=== PATIENT | female | born 1980 | race African-American/Black ===

== ENCOUNTER 2016-10-07 09:33 | Emergency (ER) | payer OTHER ==
[2016-10-07 09:44] VITALS: RESP 18
[2016-10-07] MEDS ORDERED: AZITHROMYCIN 500 MG TAB PO STA (09:54)
[2016-10-07] MEDS ORDERED: cefTRIAXone 250 MG VIAL IM STA (09:54)
[2016-10-07] MEDS ORDERED: metroNIDAZOLE 500 MG TAB PO STA (09:54)
--- NOTE | 2016-10-07 09:58 | ED ---
General Adult HPI - General Chief complaint: Recheck/Abnormal Lab/Rx Stated complaint: POSS STD Time Seen by Provider: 10/07/16 09:48 Source: patient, RN notes reviewed Mode of arrival: ambulatory Limitations: no limitations - History of Present Illness Initial comments: 36-year-old female presents to the emergency department with a chief complaint of concern for STD. Patient states that her sexual partner is having drainage and discharge and dysuria and so she is concerned. Patient states she has not had any symptoms. Patient's any abdominal pain. Patient states she was just like treatment for possible STDs and to be tested. Patient states year ago she was tested and everything was negative.Patient denies any recent fever, chills, shortness of breath, chest pain, back pain, abdominal pain, nausea vomiting, numbness or tingling, dysuria or hematuria, constipation or diarrhea, headaches or visual changes, or any other current symptoms. - Related Data Previous Rx's Medication Instructions Recorded Doxycycline [Vibramycin] 100 mg PO Q12HR #56 capsule 10/07/16 Allergies Allergy/AdvReac Type Severity Reaction Status Date / Time No Known Allergies Allergy Verified 10/07/16 09:55 Review of Systems ROS Statement: Those systems with pertinent positive or pertinent negative responses have been documented in the HPI. ROS Other: All systems not noted in ROS Statement are negative. Past Medical History Past Medical History: Asthma, Seizure Disorder Additional Past Medical History / Comment(s): Tubal , seizure in 2006, vomiting and abd. pain. History of Any Multi-Drug Resistant Organisms: None Reported Past Surgical History: Appendectomy, Section Additional Past Surgical History / Comment(s): Novasure procedure 4 yrs. ago. Past Anesthesia/Blood Transfusion Reactions: No Reported Reaction Past Psychological History: Bipolar, Depression, PTSD Smoking Status: Current every day smoker Past Alcohol Use History: Rare Additional Past Alcohol Use History / Comment(s): Smokes 1/2 PPD since age 17. Past Drug Use History: Marijuana Additional Drug Use History / Comment(s): Medical Marijuana weekly. - Past Family History Mother Family Medical History: No Reported History General Exam Limitations: no limitations General appearance: alert, in no apparent distress Eye exam: Present: normal appearance, PERRL, EOMI. Absent: scleral icterus, conjunctival injection, periorbital swelling Neck exam: Present: normal inspection. Absent: tenderness, meningismus, lymphadenopathy Respiratory exam: Present: normal lung sounds bilaterally. Absent: respiratory distress, wheezes, rales, rhonchi, stridor Cardiovascular Exam: Present: regular rate, normal rhythm, normal heart sounds. Absent: systolic murmur, diastolic murmur, rubs, gallop, clicks GI/Abdominal exam: Present: soft, normal bowel sounds. Absent: distended, tenderness, guarding, rebound, rigid Neurological exam: Present: alert, oriented X3 Psychiatric exam: Present: normal affect Skin exam: Present: warm, dry, intact, normal color. Absent: rash Course Vital Signs 10/07/16 09:40 Temperature 99.0 F Pulse Rate 85 Respiratory 18 Rate Blood Pressure 142/65 O2 Sat by Pulse 100 Oximetry Medical Decision Making - Medical Decision Making 36-year-old male presents for concern about STD. This time we did offer the patient pelvic exam to further evaluate for STDs she states she's not had any drainage or discharge. She states that she will see her own doctor for pelvic exam and she started if we can just test on the urine. This time we will respect the patient's wishes. We discussed close follow up with her doctor for additional visualization to look for possible STDs. We will test the patient's urine for STDs. We did discuss follow-up and return parameters. Patient stated that she understood she is negative plan. She will be discharged home. We discussed appropriate sexual relations at this time. - Lab Data Lab Results 10/07/16 10/07/16 Range/Units 10:12 10:12 Urine Color Yellow Urine Appearance Clear (Clear) Urine pH 7.5 (5.0-8.0) Ur Specific [place] 1.011 (1.001-1.035) Urine Protein 1+ H (Negative) Urine Glucose (UA) Negative (Negative) Urine Ketones Negative (Negative) Urine Blood Small H (Negative) Urine Nitrite Negative (Negative) Urine Bilirubin Negative (Negative) Urine Urobilinogen 2.0 (<2.0) mg/dL Ur Leukocyte Esterase Trace H (Negative) Urine RBC 8 H (0-5) /hpf Urine WBC 1 (0-5) /hpf Ur Squamous Epith Cells 1 (0-4) /hpf Urine HCG, Qual Not Detected (Not Detectd) Disposition Clinical Impression: Concern about STD in female without diagnosis Disposition: HOME SELF-CARE Condition: Stable Instructions: Sexually Transmitted Diseases (ED) Additional Instructions: Please use medication as discussed. Please follow up with family doctor if symptoms have not improved over the next two days. Please return to the emergency room if your symptoms increase or worsen or for any other concerns. Prescriptions: Doxycycline [Vibramycin] 100 mg PO Q12HR #56 capsule Referrals: Dejuan Calvo DO [STAFF PHYSICIAN] - 1-2 days Time of Disposition: 11:05
[2016-10-07 11:01] LABS: Appearance,Urine Clear (Clear); Bilirubin,Urine Negative (Negative); Glucose,Urine (UA) Negative (Negative); Ketones,Urine Negative (Negative); Leukocyte Esterase,Urine Trace (Negative); Nitrite,Urine Negative (Negative); PH, Urine 7.5 (5.0-8.0); Particle Count 787; Protein,Urine 1+ (Negative); RBC,Urine 8 /hpf (0-5); Specific Gravity,Urine 1.011 (1.001-1.035); Squamous Epithelial Cell,Urine 1 /hpf (0-4); UA Billing (MACRO vs. MICRO) MICRO; WBC,Urine 1 /hpf (0-5)
[2016-10-07 11:19] VITALS: BP 129/79; PULSE 70; TEMP 97.3
== END 2016-10-07 11:19 | disposition home or self-care (01) ==
LOC: EC 09:33
DX: Z11.3 Encounter for screening for infections with a predominantly sexual mode of transmission (principal); F17.200 Nicotine dependence, unspecified, uncomplicated
CPT/HCPCS: 99283; 96372; 81001; 81025; 87491; 87591; 87086; J0696

== ENCOUNTER 2016-10-21 05:48 | Emergency (ER) | payer OTHER ==
[2016-10-21] MEDS ORDERED: SODIUM CHLORIDE 0.9% 1,000 ML IV STA (06:20)
[2016-10-21] MEDS ORDERED: FAMOTIDINE 20 MG/2 ML VIAL IV STA (06:20)
[2016-10-21] MEDS ORDERED: ONDANSETRON 4 MG/2 ML VIAL IVP STA (06:20)
[2016-10-21] MEDS ORDERED: RX INFO: IV CONTRAST WAS GIVEN 1 EACH MISC MISCELLANE PRN (06:20)
[2016-10-21] MEDS ORDERED: HYDROmorphone 1 MG/ML 1 ML SYRINGE IVP STA (06:20)
--- NOTE | 2016-10-21 06:23 | ED ---
General Adult HPI - General Chief complaint: Abdominal Pain Stated complaint: Abd pain Time Seen by Provider: 10/21/16 06:17 Source: patient, RN notes reviewed Mode of arrival: ambulatory Limitations: no limitations - History of Present Illness Initial comments: Patient is a pleasant 36-year-old female presenting to the emergency department complaining of abdominal pain. Symptoms are chronic. Patient states symptoms come and go however have been worse the past couple of days. Patient has been vomiting. Patient vomits almost daily normally. Patient has chronic constipation and diarrhea both. Patient states her doctor told her is related to stress. Patient does not feel stress lately. Patient has had multiple evaluations for this including computed tomography scan and x-rays and colonoscopy and EGD. No fever. Discomfort is diffuse throughout the abdomen and radiates towards the back. - Related Data Home Medications Medication Instructions Recorded Confirmed Biotin 5 mg PO DAILY 10/21/16 10/21/16 Previous Rx's Medication Instructions Recorded Famotidine [Pepcid] 20 mg PO BID #30 tablet 10/21/16 Metoclopramide HCl [Reglan] 10 mg PO Q6HR PRN #15 tablet 10/21/16 Allergies Allergy/AdvReac Type Severity Reaction Status Date / Time No Known Allergies Allergy Verified 10/21/16 07:37 Review of Systems ROS Statement: Those systems with pertinent positive or pertinent negative responses have been documented in the HPI. ROS Other: All systems not noted in ROS Statement are negative. Constitutional: Denies: fever Eyes: Denies: eye pain ENT: Denies: ear pain Respiratory: Denies: cough Cardiovascular: Denies: chest pain Endocrine: Denies: fatigue Gastrointestinal: Reports: abdominal pain, nausea, vomiting, diarrhea, constipation Genitourinary: Denies: dysuria Musculoskeletal: Reports: back pain Skin: Denies: rash Neurological: Denies: weakness Past Medical History Past Medical History: Asthma, Seizure Disorder Additional Past Medical History / Comment(s): Tubal , seizure in 2006, vomiting and abd. pain. History of Any Multi-Drug Resistant Organisms: None Reported Past Surgical History: Appendectomy, Section Additional Past Surgical History / Comment(s): Novasure procedure 4 yrs. ago. Past Anesthesia/Blood Transfusion Reactions: No Reported Reaction Past Psychological History: Bipolar, Depression, PTSD Smoking Status: Current every day smoker Past Alcohol Use History: Rare Past Drug Use History: Marijuana - Past Family History Mother Family Medical History: No Reported History General Exam Limitations: no limitations General appearance: alert, in no apparent distress Head exam: Present: atraumatic Eye exam: Present: normal appearance, PERRL ENT exam: Present: normal oropharynx Neck exam: Present: normal inspection Respiratory exam: Present: normal lung sounds bilaterally Cardiovascular Exam: Present: regular rate, normal rhythm Expanded Peripheral pulses: 2+: Posterior Tibialis (R), Posterior Tibialis (L) GI/Abdominal exam: Present: soft, tenderness (Mild diffuse tenderness to palpation), normal bowel sounds. Absent: distended, guarding, rebound, rigid, pulsatile mass Extremities exam: Present: normal inspection. Absent: pedal edema, calf tenderness Neurological exam: Present: alert Psychiatric exam: Present: anxious Skin exam: Present: normal color Course Vital Signs 10/21/16 10/21/16 05:55 07:07 Temperature 98.0 F Pulse Rate 82 64 Respiratory 18 18 Rate Blood Pressure 164/85 136/68 O2 Sat by Pulse 100 100 Oximetry Medical Decision Making - Medical Decision Making Patient reexamined and significantly improved. Abhijeet soft and nontender. Patient is comfortable with discharge. Patient updated on results and need for follow-up. Patient also updated follow-up regarding hematuria. - Lab Data Result diagrams: 10/21/16 06:16 10/21/16 06:16 Lab Results 10/21/16 10/21/16 10/21/16 Range/Units 06:10 06:10 06:16 WBC (3.8-10.6) k/uL RBC (3.80-5.40) m/uL Hgb (11.4-16.0) gm/dL Hct (34.0-46.0) % MCV (80.0-100.0) fL MCH (25.0-35.0) pg MCHC (31.0-37.0) g/dL RDW (11.5-15.5) % Plt Count (150-450) k/uL Neutrophils % % Lymphocytes % % Monocytes % % Eosinophils % % Basophils % % Neutrophils # (1.3-7.7) k/uL Lymphocytes # (1.0-4.8) k/uL Monocytes # (0-1.0) k/uL Eosinophils # (0-0.7) k/uL Basophils # (0-0.2) k/uL PT (9.0-12.0) sec INR (<1.1) APTT (22.0-30.0) sec Sodium 139 (137-145) mmol/L Potassium 3.3 L (3.5-5.1) mmol/L Chloride 101 (98-107) mmol/L Carbon Dioxide 25 (22-30) mmol/L Anion Gap 13 mmol/L BUN 8 (7-17) mg/dL Creatinine 0.74 (0.52-1.04) mg/dL Est GFR (MDRD) Af Amer >60 (>60 ml/min/1.73 sqM) Est GFR (MDRD) Non-Af >60 (>60 ml/min/1.73 sqM) Glucose 85 (74-99) mg/dL Calcium 10.1 (8.4-10.2) mg/dL Total Bilirubin 0.8 (0.2-1.3) mg/dL AST 24 (14-36) U/L ALT 31 (9-52) U/L Alkaline Phosphatase 68 (38-126) U/L Total Protein 7.6 (6.3-8.2) g/dL Albumin 4.6 (3.5-5.0) g/dL Amylase 98 (30-110) U/L Lipase 101 (23-300) U/L Urine Color Yellow Urine Appearance Cloudy H (Clear) Urine pH 8.0 (5.0-8.0) Ur Specific [place] 1.015 (1.001-1.035) Urine Protein 2+ H (Negative) Urine Glucose (UA) Negative (Negative) Urine Ketones 1+ H (Negative) Urine Blood Moderate H (Negative) Urine Nitrite Negative (Negative) Urine Bilirubin Negative (Negative) Urine Urobilinogen <2.0 (<2.0) mg/dL Ur Leukocyte Esterase Negative (Negative) Urine RBC 49 H (0-5) /hpf Urine WBC 1 (0-5) /hpf Ur Squamous Epith Cells 11 H (0-4) /hpf Amorphous Sediment Occasional H (None) /hpf Urine Bacteria Rare H (None) /hpf Urine Mucus Rare H (None) /hpf Urine Yeast (Budding) Few H (None) /hpf Urine HCG, Qual Not Detected (Not Detectd) 10/21/16 10/21/16 Range/Units 06:16 06:16 WBC 6.8 (3.8-10.6) k/uL RBC 4.58 (3.80-5.40) m/uL Hgb 13.2 (11.4-16.0) gm/dL Hct 38.6 (34.0-46.0) % MCV 84.4 (80.0-100.0) fL MCH 28.9 (25.0-35.0) pg MCHC 34.2 (31.0-37.0) g/dL RDW 13.6 (11.5-15.5) % Plt Count 273 (150-450) k/uL Neutrophils % 51 % Lymphocytes % 38 % Monocytes % 6 % Eosinophils % 2 % Basophils % 1 % Neutrophils # 3.5 (1.3-7.7) k/uL Lymphocytes # 2.6 (1.0-4.8) k/uL Monocytes # 0.4 (0-1.0) k/uL Eosinophils # 0.1 (0-0.7) k/uL Basophils # 0.0 (0-0.2) k/uL PT 11.5 (9.0-12.0) sec INR 1.2 (<1.1) APTT 24.6 (22.0-30.0) sec Sodium (137-145) mmol/L Potassium (3.5-5.1) mmol/L Chloride (98-107) mmol/L Carbon Dioxide (22-30) mmol/L Anion Gap mmol/L BUN (7-17) mg/dL Creatinine (0.52-1.04) mg/dL Est GFR (MDRD) Af Amer (>60 ml/min/1.73 sqM) Est GFR (MDRD) Non-Af (>60 ml/min/1.73 sqM) Glucose (74-99) mg/dL Calcium (8.4-10.2) mg/dL Total Bilirubin (0.2-1.3) mg/dL AST (14-36) U/L ALT (9-52) U/L Alkaline Phosphatase (38-126) U/L Total Protein (6.3-8.2) g/dL Albumin (3.5-5.0) g/dL Amylase (30-110) U/L Lipase (23-300) U/L Urine Color Urine Appearance (Clear) Urine pH (5.0-8.0) Ur Specific [place] (1.001-1.035) Urine Protein (Negative) Urine Glucose (UA) (Negative) Urine Ketones (Negative) Urine Blood (Negative) Urine Nitrite (Negative) Urine Bilirubin (Negative) Urine Urobilinogen (<2.0) mg/dL Ur Leukocyte Esterase (Negative) Urine RBC (0-5) /hpf Urine WBC (0-5) /hpf Ur Squamous Epith Cells (0-4) /hpf Amorphous Sediment (None) /hpf Urine Bacteria (None) /hpf Urine Mucus (None) /hpf Urine Yeast (Budding) (None) /hpf Urine HCG, Qual (Not Detectd) - Radiology Data Radiology results: report reviewed (Computed tomography scan of the abdomen and pelvis does show some fluid in the colon. Mild stranding anterior pelvic fat.) Disposition Clinical Impression: Abdominal pain Disposition: HOME SELF-CARE Condition: Stable Instructions: Abdominal Pain (ED) Additional Instructions: Please follow-up with your doctor in the next day or 2 for recheck. Consider follow-up with gastroenterology. Return for fever, worsening or change in symptoms or other concerns. Also follow-up with your doctor regarding blood in the urine. Prescriptions: Famotidine [Pepcid] 20 mg PO BID #30 tablet Metoclopramide HCl [Reglan] 10 mg PO Q6HR PRN #15 tablet PRN Reason: Nausea Referrals: Chi Hernandez MD [STAFF PHYSICIAN] - 1-2 days Baldo Clarke MD [STAFF PHYSICIAN] - 1-2 days Elena Barreto III, MD [STAFF PHYSICIAN] - 1-2 days Time of Disposition: 07:56
[2016-10-21 06:29] LABS: Basophils % (A) 1 %; CH 28.2; CHCM 33.6; Eosinophils # (A) 0.1 k/uL (0-0.7); Eosinophils % (A) 2 %; HCT 38.6 % (34.0-46.0); HDW 2.32; HGB 13.2 gm/dL (11.4-16.0); Luc # (Auto) 0.17; Luc % (Auto) 2; Lymphocytes # (A) 2.6 k/uL (1.0-4.8); Lymphocytes % (A) 38 %; MCH 28.9 pg (25.0-35.0); MCHC 34.2 g/dL (31.0-37.0); MCV 84.4 fL (80.0-100.0); Mean Platelet Volume 6.3; Monocytes # (A) 0.4 k/uL (0-1.0); Monocytes % (A) 6 %; Neutrophils # (A) 3.5 k/uL (1.3-7.7); Neutrophils % (A) 51 %; RBC 4.58 m/uL (3.80-5.40); RDW 13.6 % (11.5-15.5); WBC 6.8 k/uL (3.8-10.6); WBC (Perox) 6.55
[2016-10-21 06:36] LABS: Amorphous Sediment,Urine Occasional /hpf; Appearance,Urine Cloudy (Clear); Bacteria,Urine Rare /hpf; Bilirubin,Urine Negative (Negative); Glucose,Urine (UA) Negative (Negative); Ketones,Urine 1+ (Negative); Leukocyte Esterase,Urine Negative (Negative); Mucus,Urine Rare /hpf; Nitrite,Urine Negative (Negative); Particle Count 19108; Protein,Urine 2+ (Negative); RBC,Urine 49 /hpf (0-5); Specific Gravity,Urine 1.015 (1.001-1.035); Squamous Epithelial Cell,Urine 11 /hpf (0-4); UA Billing (MACRO vs. MICRO) MICRO; Urobilinogen,Urine <2.0 mg/dL (<2.0); WBC,Urine 1 /hpf (0-5)
[2016-10-21 06:38] LABS: ALT 31 U/L (9-52); AST 24 U/L (14-36); Alkaline Phosphatase 68 U/L (38-126); Amylase 98 U/L (30-110); Anion Gap 13 mmol/L; Blood Urea Nitrogen 8 mg/dL (7-17); Calcium 10.1 mg/dL (8.4-10.2); Carbon Dioxide 25 mmol/L (22-30); Chloride 101 mmol/L (98-107); Glucose 85 mg/dL (74-99); Non-African American GFR(MDRD) >60 (>60 ml/min/1.73 sqM); Potassium 3.3 mmol/L (3.5-5.1); Sodium 139 mmol/L (137-145); Total Bilirubin 0.8 mg/dL (0.2-1.3); Total Protein 7.6 g/dL (6.3-8.2)
[2016-10-21 06:48] LABS: INR 1.2 (<1.1); Partial Thromboplastin Time 24.6 sec (22.0-30.0); Prothrombin Time 11.5 sec (9.0-12.0)
--- NOTE | 2016-10-21 07:46 | CT ---
EXAMINATION TYPE: CT abdomen pelvis w con DATE OF EXAM: 10/21/2016 REFERENCE: Previous study dated 01/30/2016 HISTORY: abdominal pain HISTORY: Abdominal pain REFERENCE: NONE CT DLP: 1098 mGy Automated exposure control for dose reduction was used. TECHNIQUE: Helical acquisition through the abdomen and pelvis was obtained following the oral ingesti on of without Oral Contrast and following intravenous administration of 100 ml mL of Omnipaque 300. T he data was reformatted in axial, coronal and sagittal projections. FINDINGS: Visualized portions of the lungs are clear. There is no pleural or pericardial fluid. Within the abdomen, the liver is prominent measuring 18 cm. The spleen and gallbladder are normal. Both adrenal glands are normal. Both kidneys demonstrate function and appear morphologically normal. The pancreas is unremarkable. There is no significant retroperitoneal, iliac or inguinal adenopathy. The uterus is unremarkable. There is a 2.4 cm right ovarian cyst. The left ovary is unremarkable. The bladder is unremarkable. The colon is largely fluid-filled. The appendix is not visualized. Small bowel loops are normal. There is a small amount of stranding in the subcutaneous fat of the upper pelvis. This represents a n ew finding and may be related to trauma. No osseous lesion is seen. IMPRESSION: 1. MILD HEPATOMEGALY. 2. STRANDING IN THE ANTERIOR PELVIC FAT IN THE UPPER PELVIS IS A NEW FINDING AND MAY RELATE TO MINIMA L TRAUMA. 3. FLUID-FILLED COLON. 4. FAILURE TO VISUALIZE THE APPENDIX.
[2016-10-21 08:07] VITALS: BP 127/75; PULSE 76; RESP 20; TEMP 98.1
== END 2016-10-21 08:07 | disposition home or self-care (01) ==
LOC: EC 05:48
DX: R10.84 Generalized abdominal pain (principal); M54.9 Dorsalgia, unspecified; R11.10 Vomiting, unspecified; F41.9 Anxiety disorder, unspecified; F17.200 Nicotine dependence, unspecified, uncomplicated; Z79.899 Other long term (current) drug therapy; Z90.49 Acquired absence of other specified parts of digestive tract
CPT/HCPCS: 36415; 80053; 82150; 83690; 85025; 85610; 85730; 81001; 81025; 74177; 99284; 96374; 96375 ×2; 96361 ×2; J2405; J1170; Q9967

== ENCOUNTER 2016-12-28 12:13 | Emergency (ER) | payer OTHER ==
[2016-12-28 12:32] VITALS: BP 101/69; PULSE 67; RESP 18; TEMP 98.5
--- NOTE | 2016-12-28 13:07 | ED ---
Female Urogenital HPI - General Chief complaint: Urogenital Stated complaint: STD Time Seen by Provider: 12/28/16 12:36 Source: patient Mode of arrival: ambulatory Limitations: no limitations - History of Present Illness Initial comments: Patient is a 36-year-old female who presents to the emergency department via walk-in for evaluation of possible sexually transmitted infection. Patient reports that last month both herself and her significant other advised that they have gonorrhea and were given treatment. Patient reports she follow-up with health department was also advised that she had Trichomonas for which she was prescribed Flagyl. Patient reports that she was compliant with her medications and follow up with the health department. However the patient states she does not believe that her sexual partner was compliant with his medications or follow-up with the health department. She is unsure if he was treated at all. She does report that they had unprotected sexual intercourse after she was treated in that since that time she is again been experiencing vaginal discharge. Patient also reports that since being on antibiotics for sexual transmitted infection she has developed symptoms similar to previous episodes of yeast infection. Patient has not tried any [id number] medications for this. Eyes any fevers, chills, pelvic pain. She denies any dyspareunia and reports that she was last sexually active with her partner who which she reports she has ended their relationship. MD Complaint: possible STD -: month(s) - Related Data Home Medications Medication Instructions Recorded Confirmed Otc Allergy Relief Unknown 1 tab PO DAILY PRN 12/28/16 12/28/16 Previous Rx's Medication Instructions Recorded Doxycycline [Vibramycin] 100 mg PO Q12HR #28 capsule 12/28/16 Fluconazole [Diflucan] 150 mg PO ONCE #2 tab 12/28/16 metroNIDAZOLE [Flagyl] 500 mg PO BID #28 tab 12/28/16 metroNIDAZOLE [Flagyl] 500 mg PO BID #28 tab 12/28/16 Allergies Allergy/AdvReac Type Severity Reaction Status Date / Time No Known Allergies Allergy Verified 12/28/16 13:15 Review of Systems ROS Statement: Those systems with pertinent positive or pertinent negative responses have been documented in the HPI. ROS Other: All systems not noted in ROS Statement are negative. Constitutional: Denies: fever ENT: Denies: throat pain Respiratory: Denies: cough, dyspnea Cardiovascular: Denies: chest pain, palpitations Endocrine: Denies: fatigue Gastrointestinal: Denies: abdominal pain, nausea, vomiting Genitourinary: Reports: discharge. Denies: dysuria, frequency Musculoskeletal: Denies: back pain Skin: Denies: rash, lesions Neurological: Denies: weakness Psychiatric: Denies: anxiety, depression Hematological/Lymphatic: Denies: easy bleeding, easy bruising Past Medical History Past Medical History: Asthma, Seizure Disorder Additional Past Medical History / Comment(s): Tubal , seizure in 2006 History of Any Multi-Drug Resistant Organisms: None Reported Past Surgical History: Appendectomy, Section Additional Past Surgical History / Comment(s): Novasure procedure 4 yrs. ago. Past Anesthesia/Blood Transfusion Reactions: No Reported Reaction Past Psychological History: Bipolar, Depression, PTSD Smoking Status: Current every day smoker Past Alcohol Use History: Rare Past Drug Use History: Marijuana - Past Family History Mother Family Medical History: No Reported History General Exam Limitations: no limitations General appearance: alert, in no apparent distress Head exam: Present: atraumatic, normocephalic, normal inspection Eye exam: Present: normal appearance, PERRL, EOMI. Absent: scleral icterus, conjunctival injection, periorbital swelling ENT exam: Present: normal exam, mucous membranes moist Neck exam: Present: normal inspection. Absent: tenderness, meningismus, lymphadenopathy Respiratory exam: Present: normal lung sounds bilaterally. Absent: respiratory distress, wheezes, rales, rhonchi, stridor Cardiovascular Exam: Present: regular rate, normal rhythm, normal heart sounds. Absent: systolic murmur, diastolic murmur, rubs, gallop, clicks GI/Abdominal exam: Present: soft, normal bowel sounds. Absent: distended, tenderness, guarding, rebound, rigid Rectal exam: Present: normal inspection External exam: Present: normal external exam Speculum exam: Present: vaginal discharge, cervical discharge. Absent: vaginal bleeding, laceration By manual exam: Absent: cervical motion tenderness, adnexal tenderness, adnexal mass, uterine enlargement, uterine tenderness Extremities exam: Present: normal inspection, full ROM, normal capillary refill. Absent: tenderness, pedal edema, joint swelling, calf tenderness Back exam: Present: normal inspection Neurological exam: Present: alert, oriented X3, CN II-XII intact Psychiatric exam: Present: normal affect, normal mood Skin exam: Present: warm, dry, intact, normal color. Absent: rash Course Vital Signs 12/28/16 12:28 Temperature 98.5 F Pulse Rate 67 Respiratory 18 Rate Blood Pressure 101/69 O2 Sat by Pulse 100 Oximetry Medical Decision Making - Medical Decision Making Patient was seen and evaluated, history obtained from the patient History concerning for possible reinfection with gonorrhea and or Trichomonas Physical exam concerning for vaginal discharge as well as evidence of vaginal yeast infection Will empirically treat patient with coverage for gonorrhea, chlamydia, Trichomonas and prescribe the patient Diflucan for treatment of vaginal yeast infection Advised the patient again that she needs to follow up with the health department Patient expressed understanding - Lab Data Lab Results 12/28/16 12/28/16 12/28/16 Range/Units 13:08 13:45 13:45 Urine Color Light Yellow Urine Appearance Clear (Clear) Urine pH 6.5 (5.0-8.0) Ur Specific [place] 1.011 (1.001-1.035) Urine Protein 1+ H (Negative) Urine Glucose (UA) Negative (Negative) Urine Ketones Negative (Negative) Urine Blood Small H (Negative) Urine Nitrite Negative (Negative) Urine Bilirubin Negative (Negative) Urine Urobilinogen <2.0 (<2.0) mg/dL Ur Leukocyte Esterase Negative (Negative) Urine RBC 5 (0-5) /hpf Ur Squamous Epith Cells 2 (0-4) /hpf Urine Bacteria Rare H (None) /hpf Urine HCG, Qual Not Detected (Not Detectd) Trichomonas Ag (Rapid) Negative (Negative) Disposition Clinical Impression: Vaginal Discharge, Candidiasis of vagina Disposition: HOME SELF-CARE Condition: Good Instructions: Safe Sex (ED) Prescriptions: Doxycycline [Vibramycin] 100 mg PO Q12HR #28 capsule Fluconazole [Diflucan] 150 mg PO ONCE #2 tab metroNIDAZOLE [Flagyl] 500 mg PO BID #28 tab metroNIDAZOLE [Flagyl] 500 mg PO BID #28 tab Referrals: None,Stated [Primary Care Provider] - 1-2 days Time of Disposition: 13:15
[2016-12-28] MEDS ORDERED: cefTRIAXone 250 MG VIAL IM STA (13:09)
[2016-12-28] MEDS ORDERED: DOXYCYCLINE 50 MG CAP PO STA (13:09)
[2016-12-28] MEDS ORDERED: metroNIDAZOLE 500 MG TAB PO STA (13:10)
[2016-12-28 14:05] LABS: Appearance,Urine Clear (Clear); Bacteria,Urine Rare /hpf; Bilirubin,Urine Negative (Negative); Glucose,Urine (UA) Negative (Negative); Ketones,Urine Negative (Negative); Leukocyte Esterase,Urine Negative (Negative); Nitrite,Urine Negative (Negative); PH, Urine 6.5 (5.0-8.0); Particle Count 1177; Protein,Urine 1+ (Negative); RBC,Urine 5 /hpf (0-5); Specific Gravity,Urine 1.011 (1.001-1.035); Squamous Epithelial Cell,Urine 2 /hpf (0-4); UA Billing (MACRO vs. MICRO) MICRO; Urobilinogen,Urine <2.0 mg/dL (<2.0)
[2016-12-30 10:44] LABS: Chlamydia/GC Source Vaginal
== END 2016-12-28 13:58 | disposition home or self-care (01) ==
LOC: EC 12:13
DX: B37.3 Candidiasis of vulva and vagina (principal); N89.8 Other specified noninflammatory disorders of vagina; F17.200 Nicotine dependence, unspecified, uncomplicated
CPT/HCPCS: 87591; 87491; 81001; 81025; 87808; 87070; 99283; 96372; J0696; 87205

== ENCOUNTER 2017-03-03 10:22 | Day surgery (SDC) | payer OTHER ==
[2017-03-01 18:19] VITALS: BMI 29.2
[~2017-03-03 10:22] MED LIST: LACTATED RINGERS 1,000 ML IV SCH
[2017-03-03 11:46] VITALS: TEMP 98.4
[2017-03-03] MEDS ORDERED: LIDOCAINE 1% 20 ML VIAL (10MG/ML) FOR IV START INTRADERMA ONE (11:52)
[2017-03-03] MEDS ORDERED: PROPOFOL 10 MG/ML 20 ML VIAL IV ONE (11:52)
--- NOTE | 2017-03-03 12:06 | P.GSHP ---
History of Present Illness H&P Date: 03/03/17 Chief Complaint: chronic nausea, epigastric pain and diarrhea [id number] female referred from . Patient resents today for EGD colonoscopy.the patient's had complaints of epigastric pain, nausea and diarrhea. Past Medical History Past Medical History: Asthma, Seizure Disorder, Syncope Additional Past Medical History / Comment(s): Tubal . Seizure X2 in 2006. HX SYNCOPAL EPISODES, LAST 2 MO AGO EST. N/V, BURNING ABD PAIN, CONSTIPATION TO DIARRHEA SINCE 2007, GETTING WORSE. History of Any Multi-Drug Resistant Organisms: None Reported Past Surgical History: Appendectomy, Section Additional Past Surgical History / Comment(s): Novasure procedure 4 yrs ago. LAPAROSCOPY 2015. Past Anesthesia/Blood Transfusion Reactions: No Reported Reaction Smoking Status: Current every day smoker - Past Family History Mother Family Medical History: No Reported History Medications and Allergies Home Medications Medication Instructions Recorded Confirmed Type Naproxen Sodium [Aleve] 440 mg PO BID PRN 03/01/17 03/03/17 History Ranitidine HCl [Zantac] 150 mg PO BID 03/01/17 03/03/17 History Zofran Unsure Dose 1 tab PO BID PRN 03/01/17 03/03/17 History Allergies Allergy/AdvReac Type Severity Reaction Status Date / Time No Known Allergies Allergy Verified 03/01/17 18:00 Surgical - Exam Vital Signs Temp Pulse Resp BP Pulse Ox 98.4 F 71 20 125/74 100 03/03/17 11:45 03/03/17 11:45 03/03/17 11:45 03/03/17 11:45 03/03/17 11:45 - General well developed, no distress - Eyes PERRL - ENT normal pinna - Neck no masses - Respiratory normal expansion - Cardiovascular Rhythm: regular - Abdomen Abdomen: soft, non tender Assessment and Plan Assessment: epigastric dull pain, nausea, diarrhea . We willperform EGD and colonoscopy.
--- NOTE | 2017-03-03 12:26 | P.OP ---
Date of Procedure: 03/03/17 Preoperative Diagnosis: epigastric abdominal pain chronic nausea, chronic diarrhea Postoperative Diagnosis: duodenitis Antral ulceration No evidence of mild hernia Normal colon with rectal biopsy pathology pending Procedure(s) Performed: EGD Colonoscopy Anesthesia: MAC Surgeon: Gennaro Larson Pathology: other (antrum, esophagus) Condition: stable Disposition: PACU Description of Procedure: the patient's placed on the endoscopy table lateral position. He received IV sedation. The gastric was placed oropharynx passed in the esophagus and into the stomach. The scope was then placed through the pylorus. The first and second portion of the duodenum aappeared inflamed. Several biopsies of duodenum was performed. Scope was then brought back the antrum and this appeared inflamed with small ulceration. Several biopsies performed. The scope was unretroflexed and remainder of the stomach appeared normal. There is no significant hiatal hernia. The GE junction was at 47 is. The distal esophagus appeared normal. The proximal esophagus appeared normal. Scope was withdrawn for patient. Next digital rectal exam was performed which revealed a few external hemorrhoids. The flexible colonoscope was then placed patient anus and passed rotator entire colon. The ileocecal valve was visualized. Cecum, ascending and transverse colon appeared normal. In the descending and sigmoid colon there was no abnormality seen. The scope was then brought back the rectum and this appeared normal. Due to symptoms of diarrhea a random rectal biopsies performed. The scope was then withdrawn from the patient.
[2017-03-03 12:48] VITALS: BP 119/80; PULSE 84; RESP 16
== END 2017-03-03 13:11 | disposition home or self-care (01) ==
LOC: ORWHC2ENDO 10:22
PROVIDERS: ATTEND Surgery
DX: K29.50 Unspecified chronic gastritis without bleeding (principal); K29.80 Duodenitis without bleeding; J45.909 Unspecified asthma, uncomplicated; G40.909 Epilepsy, unspecified, not intractable, without status epilepticus; F17.200 Nicotine dependence, unspecified, uncomplicated; Z79.899 Other long term (current) drug therapy
CPT/HCPCS: 81025; 88305; 88342; 45380; 43239; J2704

== ENCOUNTER 2017-06-04 15:37 | Emergency (ER) | payer OTHER ==
[2017-06-04 15:47] VITALS: BP 152/76; PULSE 83; RESP 18; TEMP 99.8
[2017-06-04] MEDS ORDERED: AZITHROMYCIN 500 MG TAB PO STA (16:09)
[2017-06-04] MEDS ORDERED: cefTRIAXone 250 MG VIAL IM STA (16:09)
--- NOTE | 2017-06-04 16:14 | ED ---
Female Urogenital HPI - General Chief complaint: Urogenital Stated complaint: Urogenital Time Seen by Provider: 06/04/17 15:48 Source: patient, RN notes reviewed Mode of arrival: ambulatory Limitations: no limitations - History of Present Illness Initial comments: This is a 37-year-old female who presents to the emergency department with request for treatment for gonorrhea. Patient states that she was seen on Wednesday by the health department. Today she received a phone call from them stating that she was positive for gonorrhea. They told her they would be unable to treat her because they were closing and advised her to report to the emergency department. Patient has no other requests or complaints. Denies fever or chills, abdominal pain, nausea or vomiting. Last Menstrual Period: 05/20/17 - Related Data Home Medications Medication Instructions Recorded Confirmed Naproxen Sodium [Aleve] 440 mg PO BID PRN 03/01/17 03/03/17 Ranitidine HCl [Zantac] 150 mg PO BID 03/01/17 03/03/17 Zofran Unsure Dose 1 tab PO BID PRN 03/01/17 03/03/17 Previous Rx's Medication Instructions Recorded Omeprazole 40 mg PO DAILY #60 capsule. 03/03/17 Allergies Allergy/AdvReac Type Severity Reaction Status Date / Time No Known Allergies Allergy Verified 06/04/17 16:04 Review of Systems ROS Statement: Those systems with pertinent positive or pertinent negative responses have been documented in the HPI. ROS Other: All systems not noted in ROS Statement are negative. Past Medical History Past Medical History: Asthma, Seizure Disorder, Syncope Additional Past Medical History / Comment(s): Tubal . Seizure X2 in 2006. HX SYNCOPAL EPISODES, LAST 2 MO AGO EST. N/V, BURNING ABD PAIN, CONSTIPATION TO DIARRHEA SINCE 2007, GETTING WORSE. History of Any Multi-Drug Resistant Organisms: None Reported Past Surgical History: Appendectomy, Section Additional Past Surgical History / Comment(s): Novasure procedure 4 yrs ago. LAPAROSCOPY 2016. Past Anesthesia/Blood Transfusion Reactions: No Reported Reaction Past Psychological History: Bipolar, Depression, PTSD Smoking Status: Current every day smoker Past Alcohol Use History: None Reported Past Drug Use History: Marijuana - Past Family History Mother Family Medical History: No Reported History General Exam - General Exam Comments Initial Comments: General: Awake and alert, well-developed; in no apparent distress. HEENT: Head atraumatic, normocephalic. Pupils are equal, round and reactive to light. Extraocular movements intact. Neck: Supple. Normal ROM. Cardiovascular: Regular rate and rhythm. No murmurs, rubs or gallops. Chest symmetrical. Respiratory: Lungs clear to auscultation bilaterally. No wheezes, rales or rhonchi. Normal respiratory effort with no use of accessory muscles. Musculoskeletal: Normal ROM, no tenderness bilateral upper and lower extremities. Ambulating normally. Skin: [place], warm and dry without rashes or lesions. Neurological: Alert and oriented x3. CN II-XII grossly intact. Speech is fluent and answers are appropriate. No focal neuro deficits. Psychiatric: Normal mood and affect. No overt signs of depression or anxiety noted. Limitations: no limitations Course Vital Signs 06/04/17 15:44 Temperature 99.8 F H Pulse Rate 83 Respiratory 18 Rate Blood Pressure 152/76 O2 Sat by Pulse 100 Oximetry Medical Decision Making - Medical Decision Making This is a 37-year-old female who presents to the emergency department with request to be treated for gonorrhea. The department contacted her today informing her that she was positive for gonorrhea. Patient presents to the emergency department for treatment. She was given Ceftriaxone 250mg IM and 1 g of azithromycin by mouth. She is to follow-up with her primary care provider. Patient is in agreement with plan and voices understanding. She will be discharged home. She is in acute distress. All questions answered. Disposition Clinical Impression: Gonorrhea Disposition: HOME SELF-CARE Condition: Good Instructions: Gonorrhea (ED) Additional Instructions: Please follow up with primary care provider within 1-2 days. Return to emergency department if symptoms should worsen or any concerns arise. Referrals: Lidia Andrade MD [Primary Care Provider] - 1-2 days Time of Disposition: 16:14
== END 2017-06-04 16:38 | disposition home or self-care (01) ==
LOC: EC 15:37
DX: A54.9 Gonococcal infection, unspecified (principal); F17.200 Nicotine dependence, unspecified, uncomplicated; Z79.899 Other long term (current) drug therapy
CPT/HCPCS: 99282; 96372; J0696

== ENCOUNTER 2017-07-18 11:38 | Emergency (ER) | payer OTHER ==
[2017-07-18 12:27] VITALS: RESP 18
--- NOTE | 2017-07-18 14:04 | ED ---
Headache HPI - General Chief Complaint: Headache Stated Complaint: headache Time Seen by Provider: 07/18/17 12:45 Source: patient, RN notes reviewed Mode of arrival: ambulatory Limitations: no limitations - History of Present Illness Initial Comments: 37-year-old female presents to the emergency Department chief complaint of headache. Patient having intermittent headaches and states that sharp shooting pain. Patient states it feels that it originates in the back several 2 through. Patient states it's like lightning bolt. Patient denies any focal weakness denies any nausea and diarrhea constipation. She occasionally has tried some [id number]-[id number] Excedrin has not tried any other medications. Patient does have history of seizures but states that she also has chronic headaches. Patient has not had any MRIs or CAT scans recently. She states she is supposed to have an MRI but missed her appointment. Denies any chance . - Related Data Home Medications Medication Instructions Recorded Confirmed ALPRAZolam [Xanax] 0.25 mg PO DAILY PRN 07/18/17 07/18/17 Acetaminophen Tab [Tylenol Tab] 1,000 mg PO Q6HR PRN 07/18/17 07/18/17 Omeprazole 20 mg PO DAILY 07/18/17 07/18/17 Previous Rx's Medication Instructions Recorded Butalb/APAP/Caff 50-325-40Mg 1 tab PO Q4H PRN #20 tablet 07/18/17 [Fioricet 50-325-40] Allergies Allergy/AdvReac Type Severity Reaction Status Date / Time No Known Allergies Allergy Verified 07/18/17 13:17 Review of Systems ROS Statement: Those systems with pertinent positive or pertinent negative responses have been documented in the HPI. ROS Other: All systems not noted in ROS Statement are negative. Past Medical History Past Medical History: Asthma, Seizure Disorder, Syncope Additional Past Medical History / Comment(s): Tubal . Seizure X2 in 2006. HX SYNCOPAL EPISODES, LAST 2 MO AGO EST. N/V, BURNING ABD PAIN, CONSTIPATION TO DIARRHEA SINCE 2007, GETTING WORSE. History of Any Multi-Drug Resistant Organisms: None Reported Past Surgical History: Appendectomy, Section Additional Past Surgical History / Comment(s): Novasure procedure 4 yrs ago. LAPAROSCOPY 2016. Past Anesthesia/Blood Transfusion Reactions: No Reported Reaction Past Psychological History: Bipolar, Depression, PTSD Smoking Status: Current every day smoker Past Alcohol Use History: None Reported Past Drug Use History: Marijuana - Past Family History Mother Family Medical History: No Reported History General Exam Limitations: no limitations General appearance: alert, in no apparent distress Head exam: Present: atraumatic, normocephalic, normal inspection Eye exam: Present: normal appearance, PERRL, EOMI. Absent: scleral icterus, conjunctival injection, periorbital swelling ENT exam: Present: normal exam, normal oropharynx, mucous membranes moist, TM's normal bilaterally Neck exam: Present: normal inspection, full ROM. Absent: tenderness, meningismus, lymphadenopathy Respiratory exam: Present: normal lung sounds bilaterally. Absent: respiratory distress, wheezes, rales, rhonchi, stridor Cardiovascular Exam: Present: regular rate, normal rhythm, normal heart sounds. Absent: systolic murmur, diastolic murmur, rubs, gallop, clicks Neurological exam: Present: alert, oriented X3, CN II-XII intact, reflexes normal, other (Rxflep-hf-xeww intact bilaterally without over shooting). Absent : motor sensory deficit Psychiatric exam: Present: normal affect, normal mood Skin exam: Present: warm, dry, intact, normal color. Absent: rash Course Vital Signs 07/18/17 12:25 Temperature 97.8 F Pulse Rate 75 Respiratory 18 Rate Blood Pressure 122/59 O2 Sat by Pulse 100 Oximetry Medical Decision Making - Medical Decision Making 37-year-old female presents from for intermittent headaches. Patient does have some symptoms consistent with occipital neuralgia. Patient will follow-up with neurologist she is advised to have her MRI as she has had a scheduled past. Patient has a normal neuro exam. Patient agrees to plan. Disposition Clinical Impression: Frequent headaches, Occipital neuralgia Disposition: HOME SELF-CARE Condition: Stable Instructions: Acute Headache (ED) Additional Instructions: Please return to the Emergency Department if symptoms worsen or any other concerns. Prescriptions: Butalb/APAP/Caff 50-325-40Mg [Fioricet 50-325-40] 1 tab PO Q4H PRN #20 tablet PRN Reason: Headache Referrals: Lidia Andrade MD [Primary Care Provider] - 1-2 days Kellen Beard MD [STAFF PHYSICIAN] - 1-2 days Time of Disposition: 14:46
--- NOTE | 2017-07-18 14:29 | CT ---
EXAMINATION: CT brain wo con DATE AND TIME: 07/18/2017 1:27 PM ORDERING PROVIDER: Vaughn Smith CLINICAL INDICATION: pain headache and near syncope TECHNIQUE: Standard departmental protocol. DLP: 933.3 mGy-cm. COMPARISON: None. DESCRIPTION: The calvarium is intact. There is no intracranial hemorrhage. There is no mass or mass e ffect. There is no definite new attenuation defect. Remainder of the intra-axial and extra-axial comp artment examination is unremarkable. The paranasal sinuses, middle ear cavities, and mastoid sinus ai r cells are clear. The orbits are intact. IMPRESSION: NO ACUTE PROCESS.
[2017-07-18] MEDS ORDERED: KETOROLAC 60 MG/2 ML VIAL IM STA (14:44)
[2017-07-18 15:20] VITALS: BP 137/76; PULSE 82; TEMP 98
== END 2017-07-18 15:19 | disposition home or self-care (01) ==
LOC: EC 11:38
DX: M54.81 Occipital neuralgia (principal); F17.200 Nicotine dependence, unspecified, uncomplicated; Z79.899 Other long term (current) drug therapy
CPT/HCPCS: 70450; 99284; 96372; J1885

== ENCOUNTER 2017-11-10 19:42 | Emergency (ER) | payer OTHER ==
[2017-11-10 19:57] VITALS: RESP 18
[2017-11-10] MEDS ORDERED: METOCLOPRAMIDE 5 MG/ML 2 ML VIAL IVP STA (20:30)
[2017-11-10] MEDS ORDERED: diphenhydrAMINE 50 MG/ML 1 ML VIAL IVP STA (20:30)
[2017-11-10] MEDS ORDERED: SODIUM CHLORIDE 0.9% 1,000 ML IV STA (20:30)
[2017-11-10] MEDS ORDERED: KETOROLAC 30 MG/ML 1 ML VIAL IVP STA (20:30)
[2017-11-10] MEDS ORDERED: AZITHROMYCIN 500 MG TAB PO STA (20:31)
[2017-11-10] MEDS ORDERED: cefTRIAXone 250 MG VIAL IM STA ×2 (20:32→21:01)
--- NOTE | 2017-11-10 20:58 | ED ---
Headache HPI - General Chief Complaint: Headache Stated Complaint: Migraine Headache Time Seen by Provider: 11/10/17 20:17 Source: RN notes reviewed Mode of arrival: ambulatory Limitations: no limitations - History of Present Illness Initial Comments: This is a 37-year-old female who presents to the emergency department with chief complaint of migraine headache. Patient reports a history of migraines. She states that she has had a frontal, throbbing headache for the past 4 days. She states that she has tried to take Fioricet with minimal relief. She also notes associated nausea and vomiting. Denies dizziness or vision changes. Denies recent falls, injuries or trauma. Patient also requests to be treated for gonorrhea. She states that she was recently treated for it and then followed up with the health department. She states that she was told by the health department that she had bacterial vaginosis and was treated with Flagyl. She states that her symptoms have not resolved and she has a thick, white vaginal discharge. She states that she has not yet heard from the health Department regarding testing for gonorrhea and Chlamydia as she was recently incarcerated. She wishes to be retreated for gonorrhea at this time. Denies any fevers or chills, chest pain or shortness of breath, abdominal pain. - Related Data Home Medications Medication Instructions Recorded Confirmed Acetaminophen Tab [Tylenol Tab] 1,000 mg PO Q6HR PRN 07/18/17 11/10/17 Previous Rx's Medication Instructions Recorded Butalb/APAP/Caff 50-325-40Mg 1 tab PO Q4H PRN #20 tablet 07/18/17 [Fioricet 50-325-40] Allergies Allergy/AdvReac Type Severity Reaction Status Date / Time No Known Allergies Allergy Verified 11/10/17 20:21 Review of Systems ROS Statement: Those systems with pertinent positive or pertinent negative responses have been documented in the HPI. ROS Other: All systems not noted in ROS Statement are negative. Past Medical History Past Medical History: Asthma, Seizure Disorder, Syncope Additional Past Medical History / Comment(s): Tubal . Seizure X2 in 2006. HX SYNCOPAL EPISODES, LAST 2 MO AGO EST. N/V, BURNING ABD PAIN, CONSTIPATION TO DIARRHEA SINCE 2007, GETTING WORSE. History of Any Multi-Drug Resistant Organisms: None Reported Past Surgical History: Appendectomy, Section Additional Past Surgical History / Comment(s): Novasure procedure 4 yrs ago. LAPAROSCOPY 2016. Past Anesthesia/Blood Transfusion Reactions: No Reported Reaction Past Psychological History: Bipolar, Depression, PTSD Smoking Status: Current every day smoker Past Alcohol Use History: None Reported Past Drug Use History: Marijuana - Past Family History Mother Family Medical History: No Reported History General Exam - General Exam Comments Initial Comments: General: Awake and alert, well-developed; in no apparent distress. Patient is tearful, stating that she has a bad headache. HEENT: Head atraumatic, normocephalic. Pupils are equal, round and reactive to light. Extraocular movements intact. Oropharynx moist without erythema or exudate. Neck: Supple. Normal ROM. Cardiovascular: Regular rate and rhythm. No murmurs, rubs or gallops. Chest symmetrical. Respiratory: Lungs clear to auscultation bilaterally. No wheezes, rales or rhonchi. Normal respiratory effort with no use of accessory muscles. Musculoskeletal: Normal ROM, no tenderness bilateral upper and lower extremities. Ambulating normally. Skin: [place], warm and dry without rashes or lesions. Neurological: Alert and oriented x3. CN II-XII grossly intact. Speech is fluent and answers are appropriate. No focal neuro deficits. Psychiatric: Normal mood and affect. No overt signs of depression or anxiety noted. Limitations: no limitations Course Vital Signs 11/10/17 19:54 Temperature 98.2 F Pulse Rate 82 Respiratory 18 Rate Blood Pressure 140/85 O2 Sat by Pulse 100 Oximetry Medical Decision Making - Medical Decision Making This is a 37-year-old female who presented to the emergency department with chief complaint of migraine headache. Patient reports a history of migraine headaches. She states that she has had one for the past 4 days and to try to take Fioricet with minimal relief of symptoms. Patient was given fluids and headache cocktail in the emergency department. On reevaluation, patient states that her symptoms have markedly improved. Vital signs have been stable. Patient also requested to be treated for possible gonorrhea. She was treated with Rocephin and azithromycin. Urine sample for testing of gonorrhea and chlamydia is pending. Patient is in no acute distress and will be discharged home at this time. All questions were answered. Disposition Clinical Impression: Acute headache, Possible exposure to STD Disposition: HOME SELF-CARE Condition: Good Instructions: Acute Headache (ED), Sexually Transmitted Diseases (ED) Additional Instructions: Please follow up with primary care provider within 1-2 days. Return to emergency department if symptoms should worsen or any concerns arise. Is patient prescribed a controlled substance at d/c from ED?: No Referrals: Lidia Andrade MD [Primary Care Provider] - 1-2 days Time of Disposition: 21:48
[2017-11-10 22:06] VITALS: BP 119/64; PULSE 62; TEMP 97.6
== END 2017-11-10 22:05 | disposition home or self-care (01) ==
LOC: EC 19:42
DX: R51 Headache (principal); R11.2 Nausea with vomiting, unspecified; F17.200 Nicotine dependence, unspecified, uncomplicated; Z53.8 Procedure and treatment not carried out for other reasons
CPT/HCPCS: 87491; 87591; 99284; 96374; 96375 ×2; 96361; 96372; J1200; J2765; J0696; J1885

== ENCOUNTER 2018-03-04 13:05 | Emergency (ER) | payer OTHER ==
[2018-03-04 13:10] VITALS: RESP 18; TEMP 98
--- NOTE | 2018-03-04 13:27 | ED ---
Abdominal Pain HPI - General Chief Complaint: Abdominal Pain Stated Complaint: Female Time Seen by Provider: 03/04/18 13:16 Source: patient, RN notes reviewed, old records reviewed Mode of arrival: ambulatory Limitations: no limitations - History of Present Illness Initial Comments: Patient is a 38-year-old female who presents emergency department today with increased vaginal discharge concern for sexual transmitted infection. Patient reports that she found out that her significant other has been cheating on her. Patient states that she has been having some lower cramping pain. She reports that her discharge and fell odor. She complains of polyuria. No recent fevers or chills. She denies any vomiting, and reports Normal stools. - Related Data Previous Rx's Medication Instructions Recorded metroNIDAZOLE [Flagyl] 500 mg PO BID #14 tab 03/04/18 Allergies Allergy/AdvReac Type Severity Reaction Status Date / Time No Known Allergies Allergy Verified 03/04/18 13:43 Review of Systems ROS Statement: Those systems with pertinent positive or pertinent negative responses have been documented in the HPI. ROS Other: All systems not noted in ROS Statement are negative. Past Medical History Past Medical History: Asthma, Seizure Disorder, Syncope Additional Past Medical History / Comment(s): Tubal . Seizure X2 in 2006. HX SYNCOPAL EPISODES, LAST 2 MO AGO EST. N/V, BURNING ABD PAIN, CONSTIPATION TO DIARRHEA SINCE 2007, GETTING WORSE. History of Any Multi-Drug Resistant Organisms: None Reported Past Surgical History: Appendectomy, Section Additional Past Surgical History / Comment(s): Novasure procedure 4 yrs ago. LAPAROSCOPY 2016. Past Anesthesia/Blood Transfusion Reactions: No Reported Reaction Past Psychological History: Bipolar, Depression, PTSD Smoking Status: Current every day smoker Past Alcohol Use History: None Reported Past Drug Use History: Marijuana - Past Family History Mother Family Medical History: No Reported History General Exam - General Exam Comments Initial Comments: 38-year-old female. Alert and oriented. Patient appears in no acute distress. Limitations: no limitations General appearance: alert, in no apparent distress Head exam: Present: atraumatic, normocephalic, normal inspection Eye exam: Present: normal appearance ENT exam: Present: normal exam, normal oropharynx, mucous membranes moist Neck exam: Present: normal inspection. Absent: tenderness, meningismus, lymphadenopathy Respiratory exam: Present: normal lung sounds bilaterally. Absent: respiratory distress, wheezes, rales, rhonchi, stridor Cardiovascular Exam: Present: regular rate, normal rhythm, normal heart sounds. Absent: systolic murmur, diastolic murmur, rubs, gallop, clicks GI/Abdominal exam: Present: soft, normal bowel sounds. Absent: distended, tenderness, guarding, rebound, rigid External exam: Present: normal external exam Speculum exam: Present: vaginal discharge. Absent: normal speculum exam, erythema, cervical discharge, vaginal bleeding, foreign body, tissue By manual exam: Present: normal by manual exam. Absent: cervical motion tenderness, adnexal tenderness Extremities exam: Present: normal inspection, full ROM, normal capillary refill. Absent: tenderness, pedal edema, joint swelling, calf tenderness Back exam: Present: normal inspection Neurological exam: Present: alert, oriented X3, CN II-XII intact Course Vital Signs 03/04/18 13:07 Temperature 98 F Pulse Rate 92 Respiratory 18 Rate Blood Pressure 124/85 O2 Sat by Pulse 98 Oximetry - Reevaluation(s) Reevaluation #1: 03/04/18 13:43 Patient reports that she is also concerned about possibly being exposed to HIV or syphilis. She was informed on post exposure prophylaxis and states that she does not want the medications until she would know if she had a positive test. Medical Decision Making - Medical Decision Making 38-year-old female process returns today for concern for STD exposure. Patient reports that her boyfriend had been cheating on her. She did have some vaginal discharge. Also concern for bacterial vaginosis. Chlamydia gonorrhea swabs were sent. She was states she would like to be treated she was given IM Rocephin and azithromycin. Urinalysis is negative for any significant infection. I do believe the Patient has bacterial vaginosis and will discharge her with prescription for metronidazole. She also requests testing for HIV and syphilis. Discussed these are send out test. I also discussed concern for postexposure prophylaxis. She states she wants to wait for the results of the testing before she would be concerned about starting the postexposure prophylaxis medication. Patient will be discharged with close follow-up with primary care physician given referrals for help department and [employer]. Patient understands treatment plan will comply. - Lab Data Lab Results 03/04/18 03/04/18 Range/Units 13:25 13:25 Urine Color Light Yellow Urine Appearance Clear (Clear) Urine pH 7.0 (5.0-8.0) Ur Specific [place] 1.008 (1.001-1.035) Urine Protein Trace H (Negative) Urine Glucose (UA) Negative (Negative) Urine Ketones Negative (Negative) Urine Blood Small H (Negative) Urine Nitrite Negative (Negative) Urine Bilirubin Negative (Negative) Urine Urobilinogen <2.0 (<2.0) mg/dL Ur Leukocyte Esterase Negative (Negative) Urine RBC 4 (0-5) /hpf Urine WBC <1 (0-5) /hpf Ur Squamous Epith Cells <1 (0-4) /hpf Urine HCG, Qual Not Detected (Not Detectd) Disposition Clinical Impression: Bacterial vaginosis, Concern about STD in female without diagnosis Disposition: HOME SELF-CARE Condition: Good Instructions: Bacterial Vaginosis (ED) Additional Instructions: Patient is advised to follow-up with [employer]. Return to emergency department if any alarming signs or symptoms occur. Patient should take medications as prescribed. Follow-up with the health department as well as any positive testing for HIV test. Prescriptions: metroNIDAZOLE [Flagyl] 500 mg PO BID #14 tab Is patient prescribed a controlled substance at d/c from ED?: No Referrals: Lidia Andrade MD [Primary Care Provider] - 1-2 days Raul Parker MD [STAFF PHYSICIAN] - 1-2 days Time of Disposition: 14:14
[2018-03-04] MEDS ORDERED: cefTRIAXone 250 MG VIAL IM STA (13:41)
[2018-03-04] MEDS ORDERED: AZITHROMYCIN 500 MG TAB PO STA (13:41)
[2018-03-04 14:02] LABS: Appearance,Urine Clear (Clear); Bilirubin,Urine Negative (Negative); Blood,Urine Small (Negative); Color,Urine Light Yellow; Glucose,Urine (UA) Negative (Negative); Ketones,Urine Negative (Negative); Leukocyte Esterase,Urine Negative (Negative); Nitrite,Urine Negative (Negative); Protein,Urine Trace (Negative); RBC,Urine 4 /hpf (0-5); Specific Gravity,Urine 1.008 (1.001-1.035); Squamous Epithelial Cell,Urine <1 /hpf (0-4); Urobilinogen,Urine <2.0 mg/dL (<2.0)
[2018-03-04 14:24] VITALS: BP 133/70; PULSE 87
[2018-03-04 20:38] LABS: HIV 1 AB Non-Reactive (Non-Reactive); HIV AB P24 Non-Reactive (Non-Reactive); HIV P24 AG Non-Reactive (Non-Reactive)
[2018-03-05 13:24] LABS: C. trachomatis,PCR Negative (Neg,Equiv); Chlamydia trachomatis Source Vagina
[2018-03-05 13:26] LABS: N. gonorrhoeae,PCR Negative (Neg,Equiv); Neisseria Source Vagina
== END 2018-03-04 14:31 | disposition home or self-care (01) ==
LOC: EC 13:05
DX: N76.0 Acute vaginitis (principal); F17.200 Nicotine dependence, unspecified, uncomplicated; Z90.49 Acquired absence of other specified parts of digestive tract
CPT/HCPCS: 36415; 81001; 81025; 87808; 87491; 87591; 86780; 87070; 87390; 99284; 96372; J0696; 87205

== ENCOUNTER 2019-05-02 09:02 | Emergency (ER) | payer OTHER ==
[2019-05-02 09:08] VITALS: RESP 18; TEMP 98.4
[2019-05-02] MEDS ORDERED: DEXAMETHASONE SOD PHOSPHATE 10 MG/ML 1 ML VIAL IV STA (09:29)
[2019-05-02] MEDS ORDERED: ALBUTEROL NEBULIZED 2.5 MG/3 ML INHALATION STA (09:29)
--- NOTE | 2019-05-02 09:31 | ED ---
General Adult HPI - General Chief complaint: Chest Pain Stated complaint: chest pain Time Seen by Provider: 05/02/19 09:18 Source: patient, RN notes reviewed, old records reviewed Mode of arrival: wheelchair Limitations: no limitations - History of Present Illness Initial comments: 39-year-old female history of asthma presenting for evaluation of left-sided chest pain. Pain has been present for approximately one week, intermittent in nature. Reports the pain is sharp and stabbing left upper chest pain. She has history of asthma and has had cough and URI symptoms for several weeks. She was treated with antibiotic by her primary care physician but has not significantly improved. She denies central chest pain. She has mild dyspnea. Denies lower extremity pain or swelling. No history of CAD, no history DVT or PE. - Related Data Previous Rx's Medication Instructions Recorded metroNIDAZOLE [Flagyl] 500 mg PO BID #14 tab 03/04/18 Albuterol Inhaler [Ventolin Hfa 1 - 2 puff INHALATION Q4HR PRN #1 05/02/19 Inhaler] inhaler methylPREDNISolone Dose Pack 4 mg PO DIRECTED #21 package 05/02/19 [Medrol Dose Pack] Allergies Allergy/AdvReac Type Severity Reaction Status Date / Time No Known Allergies Allergy Verified 05/02/19 09:05 Review of Systems ROS Statement: Those systems with pertinent positive or pertinent negative responses have been documented in the HPI. ROS Other: All systems not noted in ROS Statement are negative. Past Medical History Past Medical History: Asthma, Seizure Disorder, Syncope Additional Past Medical History / Comment(s): Tubal . Seizure X2 in 2006. HX SYNCOPAL EPISODES, LAST 2 MO AGO EST. N/V, BURNING ABD PAIN, CONSTIPATION TO DIARRHEA SINCE 2007, GETTING WORSE. History of Any Multi-Drug Resistant Organisms: None Reported Past Surgical History: Appendectomy, Section Additional Past Surgical History / Comment(s): Novasure procedure 4 yrs ago. LAPAROSCOPY 2016. Past Anesthesia/Blood Transfusion Reactions: No Reported Reaction Past Psychological History: Bipolar, Depression, PTSD Smoking Status: Current every day smoker Past Alcohol Use History: Occasional Past Drug Use History: Marijuana - Past Family History Mother Family Medical History: No Reported History General Exam Limitations: no limitations General appearance: alert, in no apparent distress Head exam: Present: atraumatic, normocephalic Eye exam: Present: normal appearance, PERRL ENT exam: Present: mucous membranes moist. Absent: normal oropharynx (Mild pharyngeal erythema) Neck exam: Present: normal inspection. Absent: tenderness, meningismus Respiratory exam: Present: wheezes, decreased breath sounds. Absent: respiratory distress Cardiovascular Exam: Present: regular rate, normal rhythm GI/Abdominal exam: Present: soft. Absent: distended, tenderness, guarding Extremities exam: Present: normal inspection, normal capillary refill. Absent: pedal edema, calf tenderness Back exam: Present: normal inspection Neurological exam: Present: alert, oriented X3, CN II-XII intact. Absent: motor sensory deficit Psychiatric exam: Present: normal affect, normal mood Skin exam: Present: warm, dry, intact. Absent: cyanosis, diaphoretic Course Vital Signs 05/02/19 05/02/19 05/02/19 09:05 09:37 09:54 Temperature 98.4 F Pulse Rate 74 74 Pulse Rate [ 71 [place] ] Respiratory 18 Rate Blood Pressure 116/80 O2 Sat by Pulse 100 Oximetry 05/02/19 09:59 Temperature Pulse Rate 76 Pulse Rate [ [place] ] Respiratory Rate Blood Pressure O2 Sat by Pulse Oximetry EKG Findings - EKG Comments: EKG Findings:: EKG: Normal sinus rhythm, rate of 68, [place] interval 190, QRS duration 84, QTC 416, no ST segment elevation Medical Decision Making - Medical Decision Making 39-year-old female presenting with cough, congestion, left-sided chest pain symptoms have been ongoing for the past several weeks. On exam patient is afebrile stable vitals. She has wheezing and decreased air entry bilaterally on exam. Chest x-ray negative for focal pneumonia, no pneumothorax, she has normal CBC, normal CMP, normal troponin, negative d-dimer. Left sided chest pain is atypical, I suspect related to coughing and asthma exacerbation. She'll be started on steroids, and albuterol, she will follow-up with her primary care ph ysician. - Lab Data Result diagrams: 05/02/19 09:45 05/02/19 09:45 Lab Results 05/02/19 05/02/19 05/02/19 Range/Units 09:45 09:45 09:45 WBC 5.9 (3.8-10.6) k/uL RBC 4.24 (3.80-5.40) m/uL Hgb 12.1 (11.4-16.0) gm/dL Hct 36.9 (34.0-46.0) % MCV 87.0 (80.0-100.0) fL MCH 28.6 (25.0-35.0) pg MCHC 32.8 (31.0-37.0) g/dL RDW 14.2 (11.5-15.5) % Plt Count 278 (150-450) k/uL Neutrophils % 58 % Lymphocytes % 31 % Monocytes % 7 % Eosinophils % 2 % Basophils % 1 % Neutrophils # 3.5 (1.3-7.7) k/uL Lymphocytes # 1.8 (1.0-4.8) k/uL Monocytes # 0.4 (0-1.0) k/uL Eosinophils # 0.1 (0-0.7) k/uL Basophils # 0.0 (0-0.2) k/uL PT 9.9 (9.0-12.0) sec INR 0.9 (<1.2) APTT 25.9 (22.0-30.0) sec D-Dimer 0.21 (<0.60) mg/L FEU Sodium 137 (137-145) mmol/L Potassium 4.2 (3.5-5.1) mmol/L Chloride 104 (98-107) mmol/L Carbon Dioxide 26 (22-30) mmol/L Anion Gap 7 mmol/L BUN 9 (7-17) mg/dL Creatinine 0.69 (0.52-1.04) mg/dL Est GFR (CKD-EPI)AfAm >90 (>60 ml/min/1.73 sqM) Est GFR (CKD-EPI)NonAf >90 (>60 ml/min/1.73 sqM) Glucose 94 (74-99) mg/dL Calcium 9.5 (8.4-10.2) mg/dL Magnesium 1.7 (1.6-2.3) mg/dL Total Bilirubin 0.6 (0.2-1.3) mg/dL AST 28 (14-36) U/L ALT 17 (4-34) U/L Alkaline Phosphatase 62 (38-126) U/L Troponin I (0.000-0.034) ng/mL Total Protein 7.1 (6.3-8.2) g/dL Albumin 4.1 (3.5-5.0) g/dL Lipase 70 (23-300) U/L 05/02/19 Range/Units 09:45 WBC (3.8-10.6) k/uL RBC (3.80-5.40) m/uL Hgb (11.4-16.0) gm/dL Hct (34.0-46.0) % MCV (80.0-100.0) fL MCH (25.0-35.0) pg MCHC (31.0-37.0) g/dL RDW (11.5-15.5) % Plt Count (150-450) k/uL Neutrophils % % Lymphocytes % % Monocytes % % Eosinophils % % Basophils % % Neutrophils # (1.3-7.7) k/uL Lymphocytes # (1.0-4.8) k/uL Monocytes # (0-1.0) k/uL Eosinophils # (0-0.7) k/uL Basophils # (0-0.2) k/uL PT (9.0-12.0) sec INR (<1.2) APTT (22.0-30.0) sec D-Dimer (<0.60) mg/L FEU Sodium (137-145) mmol/L Potassium (3.5-5.1) mmol/L Chloride (98-107) mmol/L Carbon Dioxide (22-30) mmol/L Anion Gap mmol/L BUN (7-17) mg/dL Creatinine (0.52-1.04) mg/dL Est GFR (CKD-EPI)AfAm (>60 ml/min/1.73 sqM) Est GFR (CKD-EPI)NonAf (>60 ml/min/1.73 sqM) Glucose (74-99) mg/dL Calcium (8.4-10.2) mg/dL Magnesium (1.6-2.3) mg/dL Total Bilirubin (0.2-1.3) mg/dL AST (14-36) U/L ALT (4-34) U/L Alkaline Phosphatase (38-126) U/L Troponin I <0.012 (0.000-0.034) ng/mL Total Protein (6.3-8.2) g/dL Albumin (3.5-5.0) g/dL Lipase (23-300) U/L Disposition Clinical Impression: Chest pain, Asthma exacerbation Disposition: HOME SELF-CARE Condition: Good Instructions (If sedation given, give patient instructions): Chest Pain (ED), Asthma (ED) Prescriptions: methylPREDNISolone Dose Pack [Medrol Dose Pack] 4 mg PO DIRECTED #21 package Albuterol Inhaler [Ventolin Hfa Inhaler] 1 - 2 puff INHALATION Q4HR PRN #1 inhaler PRN Reason: Shortness Of Breath Is patient prescribed a controlled substance at d/c from ED?: No Referrals: Lidia Andrade MD [Primary Care Provider] - 1-2 days Time of Disposition: 11:24
[2019-05-02 10:12] LABS: Basophils % (A) 1 %; Eosinophils # (A) 0.1 k/uL (0-0.7); Eosinophils % (A) 2 %; HCT 36.9 % (34.0-46.0); HGB 12.1 gm/dL (11.4-16.0); Lymphocytes # (A) 1.8 k/uL (1.0-4.8); Lymphocytes % (A) 31 %; MCH 28.6 pg (25.0-35.0); MCHC 32.8 g/dL (31.0-37.0); Mean Platelet Volume 6.7; Monocytes # (A) 0.4 k/uL (0-1.0); Monocytes % (A) 7 %; Neutrophils # (A) 3.5 k/uL (1.3-7.7); Neutrophils % (A) 58 %; Platelet Count 278 k/uL (150-450); RBC 4.24 m/uL (3.80-5.40); RDW 14.2 % (11.5-15.5); WBC 5.9 k/uL (3.8-10.6)
--- NOTE | 2019-05-02 10:14 | XR ---
EXAMINATION TYPE: XR chest 2V DATE OF EXAM: 05/02/2019 COMPARISON: 10/26/2012 TECHNIQUE: PA and lateral views submitted. HISTORY: Cough and congestion FINDINGS: The lungs are clear and there is no pneumothorax, pleural effusion, or focal pneumonia. No overt fa ilure. IMPRESSION: 1. No acute process.
[2019-05-02 10:26] LABS: ALT 17 U/L (4-34); AST 28 U/L (14-36); African American GFR (CKD) >90 (>60 ml/min/1.73 sqM); Albumin 4.1 g/dL (3.5-5.0); Alkaline Phosphatase 62 U/L (38-126); Anion Gap 7 mmol/L; Blood Urea Nitrogen 9 mg/dL (7-17); Calcium 9.5 mg/dL (8.4-10.2); Carbon Dioxide 26 mmol/L (22-30); Chloride 104 mmol/L (98-107); D-Dimer 0.21 mg/L FEU (<0.60); Glucose 94 mg/dL (74-99); INR 0.9 (<1.2); Magnesium 1.7 mg/dL (1.6-2.3); Non-African American GFR(CKD) >90 (>60 ml/min/1.73 sqM); Partial Thromboplastin Time 25.9 sec (22.0-30.0); Potassium 4.2 mmol/L (3.5-5.1); Prothrombin Time 9.9 sec (9.0-12.0); Sodium 137 mmol/L (137-145); Total Bilirubin 0.6 mg/dL (0.2-1.3); Total Protein 7.1 g/dL (6.3-8.2)
[2019-05-02 11:42] VITALS: BP 120/72; PULSE 78
== END 2019-05-02 11:40 | disposition home or self-care (01) ==
LOC: EC 09:02
DX: J45.901 Unspecified asthma with (acute) exacerbation (principal); F17.200 Nicotine dependence, unspecified, uncomplicated
CPT/HCPCS: 36415; 94640; 93005; 85379; 80053; 83690; 83735; 84484; 85025; 85610; 85730; 71046; 99285; 96374; J1100

== ENCOUNTER 2020-09-28 18:45 | Emergency (ER) | payer OTHER ==
[2020-09-28 19:36] VITALS: BP 123/89; TEMP 99.1
--- NOTE | 2020-09-28 20:23 | ED ---
General Adult HPI - General Chief complaint: Shortness of Breath Stated complaint: congestion, cough, SOB Time Seen by Provider: 09/28/20 20:19 Source: patient Mode of arrival: ambulatory Limitations: no limitations - History of Present Illness Initial comments: Patient presents to the ED stating that she has asthma and she has been having worsening dyspnea for the past week or 2. Patient also states that she has developed a productive cough. Patient states that she wants to make sure that she does not have "pneumonia". Patient states that she has been using her albuterol inhaler with some relief. Patient also states that she has had some vaginal discharge recently, and she wants to make sure that she does not have an STD. Patient states that she figured she would just "kill two birds with one stone" while she is here. STD testing was ordered from triage today. Patient denies having any lower abdominal or pelvic pain or cramping to me. Patient denies having any pain, fever or chills, headache, sore throat, chest pain or pressure, hemoptysis, palpitations, dizziness, abdominal pain, nausea/vomiting/diarrhea, dysuria or urinary symptoms, decreased urine output, leg or calf swelling or pain, or any other symptoms or complaints. - Related Data Previous Rx's Medication Instructions Recorded metroNIDAZOLE [Flagyl] 500 mg PO BID #14 tab 03/04/18 Albuterol Inhaler (Mhu) [Ventolin 1 - 2 puff INHALATION Q4HR PRN #1 05/02/19 Hfa Inhaler (Mhu)] inhaler methylPREDNISolone Dose Pack 4 mg PO DIRECTED #21 package 05/02/19 [Medrol Dose Pack] predniSONE [Deltasone] 20 mg PO BID #10 tab 09/28/20 Allergies Allergy/AdvReac Type Severity Reaction Status Date / Time No Known Allergies Allergy Verified 09/28/20 19:36 Review of Systems ROS Statement: Those systems with pertinent positive or pertinent negative responses have been documented in the HPI. ROS Other: All systems not noted in ROS Statement are negative. Past Medical History Past Medical History: Asthma, Pneumonia, Seizure Disorder, Syncope Additional Past Medical History / Comment(s): Tubal . Seizure X2 in 2006. HX SYNCOPAL EPISODES, LAST 2 MO AGO EST. N/V, BURNING ABD PAIN, CONSTIPATION TO DIARRHEA SINCE 2007, GETTING WORSE. History of Any Multi-Drug Resistant Organisms: None Reported Past Surgical History: Appendectomy, Section Additional Past Surgical History / Comment(s): Novasure procedure 4 yrs ago. LAPAROSCOPY 2016. Past Anesthesia/Blood Transfusion Reactions: No Reported Reaction Past Psychological History: Bipolar, Depression, PTSD Smoking Status: Current every day smoker Past Alcohol Use History: Occasional Past Drug Use History: Marijuana - Past Family History Mother Family Medical History: No Reported History General Exam Limitations: no limitations General appearance: alert, in no apparent distress Head exam: Present: atraumatic, normocephalic Eye exam: Present: normal appearance, EOMI ENT exam: Present: normal oropharynx, mucous membranes moist Neck exam: Present: other (Trachea is in midline) Respiratory exam: Present: wheezes, other (Equal breath sounds bilaterally). Absent: respiratory distress, rales, rhonchi, stridor Cardiovascular Exam: Present: regular rate, normal rhythm, normal heart sounds, other (Normal radial pulses bilaterally) GI/Abdominal exam: Present: soft. Absent: distended, tenderness, guarding Extremities exam: Present: other (Negative Homans sign bilaterally). Absent: tenderness, pedal edema, calf tenderness Neurological exam: Present: alert, oriented X3. Absent: motor sensory deficit Psychiatric exam: Present: normal affect, normal mood Skin exam: Present: warm, dry, intact, normal color Course Vital Signs 09/28/20 09/28/20 09/28/20 19:31 20:20 20:45 Temperature 99.1 F Pulse Rate 83 82 Respiratory 22 18 Rate Blood Pressure 123/89 O2 Sat by Pulse 98 Oximetry 09/28/20 20:52 Temperature Pulse Rate 84 Respiratory Rate Blood Pressure O2 Sat by Pulse Oximetry - Reevaluation(s) Reevaluation #1: 09/28/20 22:15 Patient states that her dyspnea has improved with the DuoNeb treatment that she was given in the ED, and she denies development of any new symptoms while in the ED. Patient remains alert and breathing comfortably with a normal room air oxygen saturation. Patient's wheezing has improved on examination. Patient is aware of her test results, and she feels comfortable being discharged home at this time. Patient was counseled about asthma, as well as vaginal discharge. Patient was clearly explained return and follow-up instructions, and she was instructed to follow up closely with her primary care provider. Patient was also instructed to avoid sexual intercourse/sexual activity until her STD tests return. Patient feels comfortable this plan. Medical Decision Making - Medical Decision Making Patient's chest x-ray and Covid test are both negative. Patient is breathing comfortably in the ED with a normal room air oxygen saturation. Will discharge patient home with albuterol inhaler (provided in the ED), as well as a prescription for a short course of prednisone to treat her asthma exacerbation. - Lab Data Lab Results 09/28/20 09/28/20 09/28/20 Range/Units 20:10 20:10 21:17 Urine Color Yellow Urine Appearance Clear (Clear) Urine pH 6.0 (5.0-8.0) Ur Specific [place] 1.026 (1.001-1.035) Urine Protein 2+ H (Negative) Urine Glucose (UA) Negative (Negative) Urine Ketones Negative (Negative) Urine Blood Large H (Negative) Urine Nitrite Negative (Negative) Urine Bilirubin Negative (Negative) Urine Urobilinogen 2.0 (<2.0) mg/dL Ur Leukocyte Esterase Negative (Negative) Urine RBC 17 H (0-5) /hpf Urine WBC 3 (0-5) /hpf Ur Squamous Epith Cells 2 (0-4) /hpf Urine Mucus Few H (None) /hpf Urine HCG, Qual Not Detected (Not Detectd) Coronavirus (PCR) Not Detected (Not Detectd) - Radiology Data Radiology results: report reviewed (Chest x-ray: Normal chest, no change) Disposition Clinical Impression: Asthma exacerbation, Vaginal discharge Disposition: HOME SELF-CARE Condition: Stable Instructions (If sedation given, give patient instructions): Asthma (ED), Vaginal Discharge (ED) Additional Instructions: Return to the ER immediately should you develop increased shortness of breath, a high fever, chest pain, feeling dizzy or faint, or new or worsening symptoms. Avoid sexual intercourse/sexual activity until he had received the results of your STD tests. Follow up closely with your primary care provider. Prescriptions: predniSONE [Deltasone] 20 mg PO BID #10 tab Is patient prescribed a controlled substance at d/c from ED?: No Referrals: None,Stated [Primary Care Provider] - 1-2 days Lidia Andrade MD [REFERRING] - 1-2 days Time of Disposition: 22:13
[2020-09-28 20:24] VITALS: RESP 18
[2020-09-28] MEDS ORDERED: IPRATROPIUM-ALBUTEROL 3 ML NEB INHALATION STA (20:35)
[2020-09-28 20:48] LABS: Appearance,Urine Clear (Clear); Bilirubin,Urine Negative (Negative); Blood,Urine Large (Negative); Color,Urine Yellow; Glucose,Urine (UA) Negative (Negative); Ketones,Urine Negative (Negative); Leukocyte Esterase,Urine Negative (Negative); Mucus,Urine Few /hpf; Nitrite,Urine Negative (Negative); Protein,Urine 2+ (Negative); RBC,Urine 17 /hpf (0-5); Specific Gravity,Urine 1.026 (1.001-1.035); Squamous Epithelial Cell,Urine 2 /hpf (0-4); WBC,Urine 3 /hpf (0-5)
[2020-09-28 20:52] VITALS: PULSE 84
--- NOTE | 2020-09-28 20:56 | XR ---
EXAMINATION TYPE: XR chest 2V DATE OF EXAM: 09/28/2020 COMPARISON: 05/02/2019 HISTORY: Cough TECHNIQUE: FINDINGS: Heart and mediastinum are normal. Lungs are clear. Diaphragm is normal. Bony thorax appears normal. IMPRESSION: Normal chest. No change.
[2020-09-28] MEDS ORDERED: ALBUTEROL HFA INHALER INHALATION STA (22:11)
[2020-09-28] MEDS ORDERED: predniSONE 20 MG TAB PO STA (22:11)
[2020-09-30 15:14] LABS: C. trachomatis,PCR Negative (Neg,Equiv); Chlamydia trachomatis Source Urine; N. gonorrhoeae,PCR Negative (Neg,Equiv); Neisseria Source Urine
== END 2020-09-28 23:00 | disposition home or self-care (01) ==
LOC: EC 18:45
DX: J45.901 Unspecified asthma with (acute) exacerbation (principal); N89.8 Other specified noninflammatory disorders of vagina; G40.909 Epilepsy, unspecified, not intractable, without status epilepticus; F17.200 Nicotine dependence, unspecified, uncomplicated; F12.90 Cannabis use, unspecified, uncomplicated; Z79.51 Long term (current) use of inhaled steroids; Z20.822 Contact with and (suspected) exposure to COVID-19
CPT/HCPCS: 71046; 81001; 81025; 87491; 87591; 87635; 94640; 99285

== ENCOUNTER 2021-05-29 14:30 | Emergency (ER) | payer OTHER ==
[2021-05-29 14:34] VITALS: TEMP 97.9
[2021-05-29 15:03] VITALS: RESP 18
[2021-05-29] MEDS ORDERED: ACETAMINOPHEN TAB 325 MG TAB PO STA (15:19)
[2021-05-29 15:46] LABS: Appearance,Urine Cloudy (Clear); Bacteria,Urine Rare /hpf; Bilirubin,Urine Negative (Negative); Blood,Urine Moderate (Negative); Color,Urine Yellow; Glucose,Urine (UA) Negative (Negative); Ketones,Urine Negative (Negative); Leukocyte Esterase,Urine Negative (Negative); Mucus,Urine Occasional /hpf; Nitrite,Urine Negative (Negative); PH, Urine 5.5 (5.0-8.0); Protein,Urine 2+ (Negative); RBC,Urine 14 /hpf (0-5); Specific Gravity,Urine 1.022 (1.001-1.035); Squamous Epithelial Cell,Urine 3 /hpf (0-4); Urobilinogen,Urine <2.0 mg/dL (<2.0); WBC,Urine 4 /hpf (0-5)
--- NOTE | 2021-05-29 16:01 | ED ---
General Adult HPI - General Chief complaint: Upper Respiratory Infection Stated complaint: Runny nose & headache, covid test Time Seen by Provider: 05/29/21 14:38 Source: patient Mode of arrival: ambulatory Limitations: no limitations - History of Present Illness Initial comments: This 41-year-old female presents to the emergency department with cough, runny nose, diarrhea and a headache 2 days. Patient states she has had no episodes of diarrhea today, but did have a couple episodes of diarrhea yesterday. Patient states she also did vomit one time yesterday. Patient states her work will not let her report back to her job if she does not get a negative COVID-19 test. Patient states she has been experiencing all these symptoms over the last couple of days, however she states they are slowly getting better. Patient states she has noticed some increased urinary hesitancy and urge incontinence over the last few days. She denies any burning, loss of bladder, dribbling Patient denies any chest pain, shortness of breath, abdominal pain, change in vision, thunderclap headache, hemoptysis, blood in stool. - Related Data Previous Rx's Medication Instructions Recorded metroNIDAZOLE [Flagyl] 500 mg PO BID #14 tab 03/04/18 Albuterol Inhaler (Mhu) [Ventolin 1 - 2 puff INHALATION Q4HR PRN #1 05/02/19 Hfa Inhaler (Mhu)] inhaler methylPREDNISolone Dose Pack 4 mg PO DIRECTED #21 package 05/02/19 [Medrol Dose Pack] predniSONE [Deltasone] 20 mg PO BID #10 tab 09/28/20 Allergies Allergy/AdvReac Type Severity Reaction Status Date / Time No Known Allergies Allergy Verified 05/29/21 14:31 Review of Systems ROS Statement: Those systems with pertinent positive or pertinent negative responses have been documented in the HPI. ROS Other: All systems not noted in ROS Statement are negative. Past Medical History Past Medical History: Asthma, Pneumonia, Seizure Disorder, Syncope Additional Past Medical History / Comment(s): Tubal . Seizure X2 in 2006. HX SYNCOPAL EPISODES, LAST 2 MO AGO EST. N/V, BURNING ABD PAIN, CONSTIPATION TO DIARRHEA SINCE 2007, GETTING WORSE. History of Any Multi-Drug Resistant Organisms: None Reported Past Surgical History: Appendectomy, Section Additional Past Surgical History / Comment(s): Novasure procedure 4 yrs ago. LAPAROSCOPY 2016. Past Anesthesia/Blood Transfusion Reactions: No Reported Reaction Past Psychological History: Bipolar, Depression, PTSD Smoking Status: Current every day smoker Past Alcohol Use History: None Reported, Occasional Past Drug Use History: Marijuana - Past Family History Mother Family Medical History: No Reported History General Exam Limitations: no limitations General appearance: alert, in no apparent distress Head exam: Present: atraumatic, normocephalic, normal inspection Eye exam: Present: PERRL, EOMI Pupils: Present: normal accommodation ENT exam: Present: normal exam, mucous membranes moist, other (Patient did sound congested, however she states he does have allergies) Neck exam: Present: normal inspection. Absent: tenderness, meningismus, lymphadenopathy Respiratory exam: Present: normal lung sounds bilaterally. Absent: respiratory distress, wheezes, rales, rhonchi, stridor Cardiovascular Exam: Present: regular rate, normal rhythm, normal heart sounds. Absent: systolic murmur, diastolic murmur, rubs, gallop, clicks GI/Abdominal exam: Present: soft, normal bowel sounds. Absent: distended, tenderness, guarding, rebound, rigid Extremities exam: Present: full ROM Back exam: Present: full ROM. Absent: tenderness, CVA tenderness (R), CVA tenderness (L) Neurological exam: Present: alert, oriented X3, CN II-XII intact Psychiatric exam: Present: normal affect, normal mood Skin exam: Present: warm, dry, intact, normal color. Absent: rash Course Vital Signs 05/29/21 05/29/21 14:31 14:56 Temperature 97.9 F Pulse Rate 75 Respiratory 20 18 Rate Blood Pressure 139/85 O2 Sat by Pulse 96 Oximetry Medical Decision Making - Medical Decision Making This 41-year-old female sent to the emergency department with upper respiratory signs and symptoms over the last couple of days. Patient tested negative for COVID-19. Patient did state her menstrual cycle has been off for the last couple of months. Blood was noted in her urine and she states she has had some light bleeding over the last couple of days. Patient was given primary care provider for follow-up. She was told to follow up with [employer] for changes in her menstrual cycle. Patients urine hCG negative. Patient was given negative COVID-19 slip for work. Patient to follow-up with primary care provider next 24-48 hours. Strict return precautions were discussed. Patient verbally agreed to plan. Patient sent home in stable condition. Case discussed with my attend Dr. Joce pitt - Lab Data Lab Results 05/29/21 05/29/21 05/29/21 Range/Units 14:48 15:37 15:37 Urine Color Yellow Urine Appearance Cloudy H (Clear) Urine pH 5.5 (5.0-8.0) Ur Specific [place] 1.022 (1.001-1.035) Urine Protein 2+ H (Negative) Urine Glucose (UA) Negative (Negative) Urine Ketones Negative (Negative) Urine Blood Moderate H (Negative) Urine Nitrite Negative (Negative) Urine Bilirubin Negative (Negative) Urine Urobilinogen <2.0 (<2.0) mg/dL Ur Leukocyte Esterase Negative (Negative) Urine RBC 14 H (0-5) /hpf Urine WBC 4 (0-5) /hpf Ur Squamous Epith Cells 3 (0-4) /hpf Urine Bacteria Rare H (None) /hpf Urine Mucus Occasional H (None) /hpf Urine HCG, Qual Not Detected (Not Detectd) Coronavirus (PCR) Not Detected (Not Detectd) Disposition Clinical Impression: Viral upper respiratory infection Disposition: HOME SELF-CARE Condition: Stable Instructions (If sedation given, give patient instructions): Upper Respiratory Infection (ED) Additional Instructions: Please return to the emergency department with any concerning, new, worsening symptoms. Please follow-up with primary care provider next 24-48 hours if any symptoms worsen. Is patient prescribed a controlled substance at d/c from ED?: No Referrals: None,Stated [Primary Care Provider] - 1-2 days Randy Soriano [STAFF PHYSICIAN] - 1-2 days Time of Disposition: 15:59
[2021-05-29 16:17] VITALS: BP 141/89; PULSE 80
== END 2021-05-29 16:16 | disposition home or self-care (01) ==
LOC: EC 14:30
DX: J06.9 Acute upper respiratory infection, unspecified (principal); Z20.822 Contact with and (suspected) exposure to COVID-19; J45.909 Unspecified asthma, uncomplicated; F31.9 Bipolar disorder, unspecified; F12.90 Cannabis use, unspecified, uncomplicated; F43.10 Post-traumatic stress disorder, unspecified; F17.200 Nicotine dependence, unspecified, uncomplicated; Z90.49 Acquired absence of other specified parts of digestive tract
CPT/HCPCS: 81001; 81025; 87635; 99284